=== PATIENT | female | born 1965 | race Two or more races ===

== ENCOUNTER 2018-05-03 07:50 | Outpatient (CLI) | payer OTHER | END 2018-05-03 07:52 | disposition home or self-care (01) | LOC: SONOGRAMA 07:50 | DX: C50.411 Malignant neoplasm of upper-outer quadrant of right female breast (principal); E03.8 Other specified hypothyroidism ==

== ENCOUNTER 2018-05-03 09:07 | Outpatient (CLI) | payer OTHER | END 2018-05-03 09:59 | disposition home or self-care (01) | LOC: LAB 09:07 | DX: C50.411 Malignant neoplasm of upper-outer quadrant of right female breast (principal); E03.8 Other specified hypothyroidism; D50.8 Other iron deficiency anemias; D51.8 Other vitamin B12 deficiency anemias; I10 Essential (primary) hypertension; D51.1 Vitamin B12 deficiency anemia due to selective vitamin B12 malabsorption with proteinuria; D51.0 Vitamin B12 deficiency anemia due to intrinsic factor deficiency; R97.0 Elevated carcinoembryonic antigen [CEA]; R97.8 Other abnormal tumor markers ==

== ENCOUNTER 2018-05-03 10:21 | Outpatient (CLI) | payer OTHER | END 2018-05-03 10:38 | disposition home or self-care (01) | LOC: TOM 10:21 | DX: C50.411 Malignant neoplasm of upper-outer quadrant of right female breast (principal); E03.8 Other specified hypothyroidism ==

== ENCOUNTER 2021-06-13 19:24 | Emergency (ER) | payer OTHER ==
[~2021-06-13] VITALS: Ht 162.6 cm; Wt 60.8 kg
[2021-06-13] MEDS ORDERED: SYNTHROID75 MCG (21:27)
[2021-06-13] MEDS ORDERED: PANADOL EXTRA500 MG (21:28)
== END 2021-06-13 22:55 | disposition home or self-care (01) ==
LOC: ER 19:24
DX: R10.13 Epigastric pain (principal); E07.89 Other specified disorders of thyroid; Z85.3 Personal history of malignant neoplasm of breast